=== PATIENT | female | born 1990 | race Caucasian/White ===

== ENCOUNTER 2020-12-30 09:30 | Inpatient (IN) | payer BC, SELFPAY ==
[2020-12-30] VITALS (54 sets, daily range): BP systolic 97–130; BP diastolic 54–82; PULSE 65–104; RESP 16; TEMP 36.1–37.3; O2SAT 68–100; BMI 28.1
[2020-12-30] MEDS: Lactated Ringers 1,000 ML 50 ML IV (10:00)
[2020-12-30] MEDS: Oxytocin 30 units/NS 500 ml 30 UNITS/500 ML IV.SOLN IV (10:20)
[2020-12-30 10:23] LABS: Absolute Lymphocyte Count 1.13 X10^3/uL (0.83-4.51); Absolute Neutrophil Count 6.1 X10^3/uL (2.0-7.7); Basophil# 0.03 X10^3/uL; Basophil% 0.4 % (0-1); Eosinophil# 0.07 X10^3/uL; Eosinophils% 0.9 % (0-5); Hematocrit 38.1 % (37-47); Hemoglobin 12.9 g/dL (12.0-15.0); Lymphocyte # 1.13 X10^3/ul (4.0); Lymphocyte % 14.3 % (19-41); Mean Corp Hgb Conc 33.9 g/dL (32-36); Mean Corpuscular Hgb 32.5 pg (27.0-32.0); Mean Platelet Vol. 11.7 fl (6.2-12.0); Monocyte# 0.49 X10^3/uL; Monocyte% 6.2 % (0-10); NRBC Flagged by Analyzer 0 % (0-5); Neutrophil # 6.14 X10^3/uL (2.7-7.7); Neutrophil % 77.4 % (47-70); Platelet Count 141 K/mm3 (150-450); RBC Distribution Width CV 13.2 % (11.6-14.6); RBC Distribution Width SD 45.7 fl (35.1-43.9); Red Blood Count 3.97 M/mm3 (4.2-5.4); White Blood Count 7.9 K/mm3 (4.4-11.0)
[2020-12-30] MEDS: Lactated Ringers 500 ML 999 ML IV (13:14)
[2020-12-30] MEDS: fentaNYL-bupivacaine (epidural) 100 ML BAG EPIDURAL (14:45)
[2020-12-30] MEDS: Ondansetron 4 MG/2 ML Vial IV (15:02)
[2020-12-30] MEDS: Oxytocin 30 units/NS 500 ml 30 UNITS/500 ML IV.SOLN 334 UNITS IV (15:43)
--- NOTE | 2020-12-30 16:10 | PCM.OPRPT ---
Vaginal Delivery Maternal Presentation: Medically Indicated Induction Method of Induction: Pitocin, Amniotomy Amniotic Membrane Rupture Type: Artificial Amniotic Fluid Description: Clear Final KYRIE: 01/04/21 Gestational age: 39 Weeks and 2 Days Date of Procedure: 12/30/20 Pre-Operative Diagnosis: History of shoulder dystocia Post-Operative Diagnosis: Same Surgery/ Procedure Performed: Spontaneous Vaginal Delivery Type of Anesthesia: Epidural Description of Procedure: Patient pushed when C/C/+1. She pushed well. Patient was then prepped & draped in stirrups. She pushed well to deliver the head. Shoulders & body spontaneously followed. Infant placed on maternal abdomen where 3VC clamped & cut in delayed fashion. Placenta delivered with gentle traction and good uterine tone obtained. Presentation: RADHA Placental Delivery Description: Expressed Placenta Disposition: [facility] Cord Vessel Description: 3 Vessels Cord Entanglement: None Drain: Posada to straight drain Estimated Blood Loss: 250ml A gender: Female - [place] (1 minute): 9 (5 minute): 9 Episiotomy Description: None Laceration: None Medications given after delivery: IV Pitocin Complications: None
--- NOTE | 2020-12-30 16:16 | HP.PCM_ITS ---
History Date of Admission: 12/30/20 Final KYRIE: 01/04/21 Gestational age: 39 Weeks and 2 Days History of this : This is a 30 year-old, G [], P [], at 39 weeks gestational age. Medical History: Medical History (Last Updated 12/30/20 @ 16:[address] David Broderick MD) delivery delivered O82 Depression F32.9 Allergies fluoxetine [From Prozac] Adverse Reaction (Verified 10/14/17 21:29) Upset Stomach paroxetine [From Paxil] Adverse Reaction (Verified 10/14/17 21:29) Upset Stomach Home Medications: Home Medications buPROPion tablets [Wellbutrin] 150 mg PO DAILY 10/14/17 Acyclovir 400 mg PO DAILY 12/30/20 Vits [Prenatabs FA] 1 tab PO DAILY 12/30/20 Smoking Status: Light Smoker (<10/day) Substance Use Type: Anxiety Medications History Past Pregnancies: Past Pregnancies Delivery Date Name GA/ Weeks Outcome Route Wt Sex Labor Length Anesthesia Delivery Location Provider FOB Physical Exam Vitals: Vital Signs Temp Pulse BP Pulse Ox 97.5 F L 85 119/69 68 12/30/20 15:55 12/30/20 16:13 12/30/20 16:11 12/30/20 16:13 General: Alert, Oriented x3 Abdomen: Bowel Sounds Present, Soft, Non Tender, Gravid Neurological: Cranial nerves II-XII grossly intact FIELD SERVICE SUPERVISOR: Normal external genitalia Estimated gestational size: Appropriate for gestational size Presentation: Cephalic Cervix Dilation (cm): 3.5 - AROM clear fluid Station: -2 Effacement (%): 60 Assessment/Plan This is a 30 year-old, at 39&2 weeks gestational age. Admit to L&D Induction - patient counseling extensively on R/B/A of repeat vs induction with TOLAC. Patient with h/o shoulder dystocia and thus those risks reviewed as well. Patient wishes to proceed with induction. S/p AROM & on pitocin. Pain - plans for epidural GBS negative COVID negative ([facility] lab) Routine care
[2020-12-30] MEDS: Ibuprofen 600 MG Tablet PO (17:02)
[2020-12-30] MEDS: Sertraline 100 MG Tablet PO (23:28)
[2020-12-31 03:27] VITALS: BP 106/69; PULSE 78; RESP 16; TEMP 36.7
--- NOTE | 2020-12-31 07:25 | PN.OBGYN_ITS ---
Subjective: She is doing well. Pain well controlled. Lochia normal. She is breast-feeding without complaints. No chest pain, shortness of breath, lightheadedness, dizziness, leg pain. She feels well and has no complaints. She desires to go home today. Voiding and ambulating without difficulty. Eating a diet without difficulty. - Physical Exam Vitals/I&O's: Vital Signs Temp Pulse Resp BP Pulse Ox 98.1 F 78 16 106/69 100 12/31/20 03:27 12/31/20 03:27 12/31/20 03:27 12/31/20 03:27 12/30/20 17:33 Oxygen Delivery Method Room Air Weight: 164 lb Body Mass Index (BMI) 28.1 Intake and Output for Last 24 Hours 12/29/20 12/30/20 12/31/20 23:59 23:59 23:59 Intake Total 1462.83 / 1462.83 Output Total 50 / 50 Balance 1412.83 / 1412.83 General: Alert, No apparent distress HEENT: Atraumatic Abdomen: Soft, Non Tender, - - FF Extremities: No edema, No Calf Tenderness Skin: No rashes Neurological: Neuro grossly intact Psych/Mental Status: Normal Affect, Appropriate Laboratory Results 12/30/20 10:00: WBC 7.9, RBC 3.97 L, Hgb 12.9, Hct 38.1, MCV 96.0, MCH 32.5 H, MCHC 33.9, RDW Std Deviation 45.7 H, RDW Coeff of Kenneth 13.2, Plt Count 141 L, MPV 11.7, Immature Gran % (Auto) 0.800, Neut % (Auto) 77.4 H, Lymph % (Auto) 14.3 L, [place] % (Auto) 6.2, Eos % (Auto) 0.9, Baso % (Auto) 0.4, Absolute Neuts (auto) 6.1, Absolute Lymphs (auto) 1.13, Nucleated RBC % 0 12/30/20 10:00: Blood Type A POSITIVE, Antibody Screen NEGATIVE Current Medications Acetaminophen (Acetaminophen 500 Mg Tablet) 1,000 mg PO Q8H PRN PRN PRN Reason: Pain Score 1-3 Bisacodyl (Bisacodyl 10 Mg Suppository) 10 mg RC UD PRN PRN Reason: If no BM Dibucaine (Dibucaine 30 Gm Tube) 1 applic TOPICAL TID PRN PRN; Protocol PRN Reason: Discomfort Hydrocortisone (Hydrocortisone 2.5% Crm) 1 applic TOPICAL TID PRN PRN; Protocol PRN Reason: Discomfort Ibuprofen (Ibuprofen 600 Mg Tablet) 600 mg PO Q6H PRN PRN PRN Reason: Pain Score 1-3 Last Admin: 12/30/20 17:02 Dose: 600 mg Documented by: Methylergonovine Maleate (Methylergonovine 0.2 Mg/Ml Ampul) 0.2 mg IM X1 PRN PRN Reason: Excess bleeding/uterine atony Ondansetron HCl (Ondansetron 4 Mg/2 Ml Vial) 4 mg IV Q4H PRN PRN PRN Reason: Nausea Oxycodone HCl (Oxycodone 5 Mg Tablet) 5 - 10 mg PO Q4H PRN PRN PRN Reason: Pain Score 4-10 Multivit/Folic Acid/Iron ( Vits Tablet) 1 tablet PO DAILY@1200 ROS Senna/Docusate Sodium (Senna/Docusate Sodium 1 Tablet) 1 - 2 tablet PO DAILY PRN PRN PRN Reason: Constipation Sertraline HCl (Sertraline 100 Mg Tablet) 100 mg PO DAILY@2200 ROS Last Admin: 12/30/20 23:28 Dose: 100 mg Documented by: Simethicone (Simethicone 80 Mg Tablet) 80 mg PO PCHS PRN PRN Reason: Indigestion/Stomach pain Sodium Chloride (0.9% Saline Lock 10 Ml Syringe) 5 - 15 ml IV UD PRN PRN Reason: SALINE FLUSH Medical Necessity - Tobacco Use Smoking Status: Light Smoker (<10/day) Assessment/Plan Patient is day 1 from a vaginal after section. She is doing well. She desires discharge today. Discharge instructions reviewed.
--- NOTE | 2020-12-31 07:26 | DCINST_ITS ---
Discharge Diet: No Restrictions Discharge Activity: May Shower May resume sexual activity in: 6 weeks Ice area for (Minutes): 15 Weight Bearing Status: Weight bearing as tolerated Lifting Restrictions: Nothing heavier than baby Call your doctor if you observe: Fever of 101 or Higher, Change in Color, Inability to urinate, Inability to have a bowel movement, Using more than one pad per hour, Shortness of breath, Dizziness, Fainting spells, Swelling in the ankles, Chest pain, Calf discomfort, Uncontrolled pain Additional Instructions: If you experience any of the following, contact your healthcare provider. * Bleeding that soaks a pad every hour for 2 hours * Fever 100.4 or higher * Unrelieved incision or abdominal pain * Swelling, redness, discharge or bleeding from your incision or episiotomy site * Your incision begins to separate * Problems urinating (including inability to urinate or burning while urinating). * Visual changes * Severe headache * Flu-like symptoms * Pain or redness in one of both of your breasts * Pain, warmth, tenderness or swelling in your legs, especially the calf area * Frequent nausea and vomiting * Symptoms of depression or anxiety If you experience any of the following, call 911 or go to the nearest Emergency Room. * Chest pain * Problems breathing * Seizure activity * Partial or complete paralysis of a body part, slurred speech, weakness or drooping of the face, or a sudden inability to walk or hold your balance Allergies/Adverse Reactions: Allergies fluoxetine [From Prozac] Adverse Reaction (Verified 10/14/17 21:29) Upset Stomach paroxetine [From Paxil] Adverse Reaction (Verified 10/14/17 21:29) Upset Stomach Medications to take at Discharge Acyclovir 400 mg PO DAILY 12/30/20 Vits [Prenatabs FA] 1 tab PO DAILY 12/30/20 Sertraline HCl [Zoloft] 100 mg PO DAILY 12/30/20 When: 1-2 weeks for virtual if you desires. 6 weeks for Primary Care Physician: Care Physician,No Primary [Primary Care Provider] - Test Results: Test results from this visit will be discussed in further detail at your follow- up appointment, if applicable.
[2020-12-31 08:04] VITALS: O2SAT 96
[2020-12-31 08:49] VITALS: BP 111/70; PULSE 78; RESP 16; TEMP 36.1
--- NOTE | 2020-12-31 11:10 | CASEMGMT ---
Social Work Brief Assessment completed. Refer documentation below for further details. Date of Referral/Notification: 12/30/2020 Time of Referral: 1857 Referred By: Dr. David Broderick Reason for Referral: maternal history of PPD, depression, and anxiety Date of Intervention: 12/31/2020 Time of Intervention: 1110 Informant: Medical record, care record, and mother of baby (MOB) Brynn History: MOB is 30 year old female, to 3 after delivery of this admission. to be named Rolanda, weighed 7 pounds 4 ounces, Apgars of 9 and 9. MOB is to father of baby (FOB), Stewart, and have two other children at home named Mariah (born April 2014) and Supriya (born September 2017). No issues with transportation or housing reported. MOB reports just built a new home on [address], moving in last month. 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 There is family support on both sides, from MOB?s parents and from FOB?s mother. MOB with history of depression and anxiety, treatment at [facility] with Basil De Los Santos. MOB has been on Zoloft and Wellbutrin in the past, currently treated with Zoloft during this . Prior history reports Wellbutrin works the best for MOB. No reports of any current or recent drug usage, MOB with history of some illicit drug use as a teen and then as an adult history of marijuana. Assessment: MOB holding baby during social work visit, appropriate and gentle. MOB with appropriate affect, good eye contact. MOB reports plan to stay on antidepressant medications. Reports to have adequate support at home from family, and to have needed baby supplies. Reports to have a connectin to this baby as well. Denies any concerns for home going. No safety concerns in household, or with the FOB. Per nursing, no concerns with mother/ bonding or MOB actions/behaviors. Provided MOB with resource for mood and anxiety disorders. MOB accepting of information provided, which includes signs and symptoms, how to care for self, parenting with depression, local counseling resources, as well as online resources. Plan: MOB and to home. MOB plans to stay on prescribed antidepressant and to call doctor if symptoms of arise post discharge. No further needs requested or indicated. -KATHRINE Richardson, ALTERATION TAILOR
[2020-12-31 12:31] VITALS: BP 93/58; PULSE 71; RESP 16; TEMP 36.1
[2020-12-31 16:17] VITALS: BP 112/73; PULSE 83; RESP 16; TEMP 36.2
== END 2020-12-31 18:10 | disposition home or self-care (01) | DRG 807 ==
PROVIDERS: Admitting Provider Obstetrics & Gynecology; Visit Provider Obstetrics & Gynecology
DX: O34.219 Maternal care for unspecified type scar from previous cesarean delivery (principal); Z37.0 Single live birth; O99.344 Other mental disorders complicating childbirth; O99.334 Smoking (tobacco) complicating childbirth; F17.200 Nicotine dependence, unspecified, uncomplicated; Z3A.39 39 weeks gestation of pregnancy; F32.9 Major depressive disorder, single episode, unspecified
CPT/HCPCS: 59025; 59050; 85025; 86850; 86900; 86901; 99218; J7120; G0378; J2405

== ENCOUNTER 2022-07-28 04:28 | Emergency (ER) | payer BC, SELFPAY ==
[2022-07-28 04:29] VITALS: PULSE 77; RESP 18; TEMP 35.9; O2SAT 100; BMI 20.7
[2022-07-28 04:34] VITALS: BP 128/83
--- NOTE | 2022-07-28 04:48 | RAD_ITS ---
STUDY: X-RAY CHEST REASON FOR EXAM: Female, 32 years old. chest pain TECHNIQUE: AP portable. 4:51 AM. COMPARISON: None. FINDINGS: LUNGS: No consolidation. No pneumothorax. MEDIASTINUM: Unremarkable. CARDIAC SILHOUETTE: Not enlarged. BONES AND SOFT TISSUES: No acute abnormalities. RAD/Chest 1 View (Portable) IMPRESSION: No evidence of active intrathoracic disease. Electronically Signed: Rosa Maria Crenshaw MD at 5:05 EDT ,
[2022-07-28 05:00] LABS: Absolute Lymphocyte Count 2.73 X10^3/uL (0.83-4.51); Absolute Neutrophil Count 4.8 X10^3/uL (2.0-7.7); Basophil# 0.07 X10^3/uL; Basophil% 0.8 % (0-1); Eosinophil# 0.36 X10^3/uL; Eosinophils% 4.2 % (0-5); Hemoglobin 13.5 g/dL (12.0-15.0); Lymphocyte # 2.73 X10^3/ul (0.83-4.51); Lymphocyte % 31.6 % (19-41); Mean Corp Hgb Conc 33.8 g/dL (32-36); Mean Corpuscular Hgb 30.8 pg (27.0-32.0); Mean Corpuscular Volume 91.3 fL (81-99); Mean Platelet Vol. 11.3 fl (6.2-12.0); Monocyte# 0.68 X10^3/uL; Monocyte% 7.9 % (0-10); NRBC Flagged by Analyzer 0 % (0-5); Neutrophil # 4.79 X10^3/uL (2.7-7.7); Neutrophil % 55.3 % (47-70); Platelet Count 236 K/mm3 (150-450); RBC Distribution Width CV 12.3 % (11.6-14.6); RBC Distribution Width SD 41.1 fl (35.1-43.9); Red Blood Count 4.38 M/mm3 (4.2-5.4); White Blood Count 8.7 K/mm3 (4.4-11.0)
--- NOTE | 2022-07-28 05:08 | EX.ED.DYSGE1 ---
HPI History of Present Illness Chief Complaint: Chest Pain Informant: patient Narrative Narrative: Patient states she has been having episodes for the last 1 and half to 2 weeks. Most of these occur about 1 or 2 in the morning. She will wake up panicking. She has trouble catching her breath. Her chest feels tight and her heart is racing. She states she knows her blood pressure is up. She has not checked her blood pressure but she states that she can feel when her blood pressure is up. She has had these episodes occur during the day but they are not as common. In between the episodes she feels fine and is not having any symptomatology. She does have a history of anxiety and panic attacks but states they usually feel little different than this. She is not on medications for anxiety at this time. She is overall quite healthy Patient has no history of medical problems. She is on no medications including no control or hormonal therapy. She vapes but does not smoke cigarettes. She only vapes occasionally. She has no blood pressure diabetes cholesterol or family history of heart disease. She has no recent travel surgery immobilization personal or family history of DVT or PE. She has no leg swelling or pain. [facility] Medical History delivery delivered Depression Allergy/AdvReac Type Severity Reaction Status Date / Time fluoxetine [From Prozac] AdvReac Upset Verified 10/14/17 21:29 Stomach paroxetine [From Paxil] AdvReac Upset Verified 10/14/17 21:29 Stomach Social History Smoking Status: Current every day smoker tobacco type: e-cigarettes ROS ROS ED Constitutional Constitutional ED: Denies chills or fever(s) Eyes Eyes: Denies change in vision ENT ENT ED: Denies ear pain or rhinorrhea Cardiovascular Cardiovascular: Reports chest pain, palpitations and racing heartbeat; Denies orthopnea or paroxysmal nocturnal dyspnea Respiratory/Chest Respiratory/Chest: Reports dyspnea; Denies cough, dyspnea on exertion, orthopnea, paroxysmal nocturnal dyspnea or sputum Gastrointestinal Gastrointestinal: Denies abdominal pain, nausea or vomiting Musculoskeletal Musculoskeletal: Denies arthralgias or myalgias Integumentary Denies rash Neurologic Neurologic: Denies headache(s), paresthesias or weakness Psychiatric Psychiatric: Reports anxiety Endocrine Endocrinology: Denies polydipsia or polyuria Hematologic/Lymphatic Hematologic/Lymphatic: Denies anemia Allergic/Immunologic Allergic/Immunologic ED: Denies urticaria EXAM Physical Exam Const Vital Signs: 07/28/22 04:29 07/28/22 04:33 07/28/22 04:34 Temperature 96.7 F L Temperature Source Temporal Pulse Rate 77 Respiratory Rate 18 Respiratory Effort Normal Non-Labored Blood Pressure 128/83 H Blood Pressure Mean 98 Pulse Ox 100 Oxygen Delivery Method Room Air 07/28/22 04:49 Temperature Temperature Source Pulse Rate Respiratory Rate Respiratory Effort Blood Pressure Blood Pressure Mean Pulse Ox Oxygen Delivery Method Room Air Positive well nourished and well developed General Appearance ED: well developed and NAD; Negative for cyanotic, diaphoretic or pallor HEENT Reports moist mucous membranes Eyes General Eye ED: Negative for pale conjunctiva or scleral icterus Neck supple and no JVD Chest Wall inspection of chest normal Resp normal respiratory effort and clear to auscultation bilaterally Resp Narrative: No pain with a deep breath Auscultation: Negative for rales, rhonchi or diminished lung sounds Cardio regular rate, regular rhythm and no murmurs Rate: other Other Details: Heart rate is about 80 on the monitor. No ectopy noted. GI normal to inspection, nondistended, normoactive bowel sounds, non-tender and non-distended Palpation: soft Back/Spine no CVA tenderness Extremity normal to inspection Extremity Narrative: No edema, cords, tenderness, distended veins or asymmetry. General Extremety ED: Negative for edema or tenderness General Extremity: Negative for edema Psych Mood & Affect: anxious Skin no rashes or lesions noted General Skin Exam: elasticity normal; Negative for jaundice or pallor MDM MDM MDM Narrative Medical decision making narrative: I reviewed chest x-ray. Blood work reviewed. CBC including hemoglobin white count platelets are normal. Electrolytes are normal. Creatinine is normal. Troponin is negative at 3. TSH is within normal. Since the patient's been having symptoms for a week and a half or more I do not think that we need to do a delta troponin. She is very low risk patient. She is PERC negative. She is having intermittent symptoms that occur consistently at night and occasionally during the day. This might be reflux. We talked about that. She states she did feel as though she had some acid taste a couple times but not consistently. We will have her start Prilosec or Nexium [id number]. She has an appointment with her physician already on Sunday and she should keep this. We discussed that this could be anxiety or panic attacks that she has had those before. If she is not improving with the proton pump inhibitor they may look into further treatment with anxiety meds. She may need further work-up. We discussed reasons to return. Lab Data Attestation: I reviewed the patient's lab results. Labs: Laboratory Results - last 24 hr 07/28/22 07/28/22 04:31 04:31 WBC 8.7 RBC 4.38 Hgb 13.5 Hct 40.0 MCV 91.3 MCH 30.8 MCHC 33.8 RDW Std Deviation 41.1 RDW Coeff of Kenneth 12.3 Plt Count 236 MPV 11.3 Immature Gran % (Auto) 0.200 Neut % (Auto) 55.3 Lymph % (Auto) 31.6 [place] % (Auto) 7.9 Eos % (Auto) 4.2 Baso % (Auto) 0.8 Absolute Neuts (auto) 4.8 Absolute Lymphs (auto) 2.73 Nucleated RBC % 0 Sodium 140 Potassium 3.5 Chloride 105 Carbon Dioxide 29.0 Anion Gap 6 BUN 12 Creatinine 0.73 Estim Creat Clear Calc 93.77 Est GFR (MDRD) Af Amer 117 Est GFR (MDRD) Non-Af 97 BUN/Creatinine Ratio 16.4 Glucose 104 Calcium 9.3 Troponin I High Sens 3 TSH 3.74 Radiography Diagnostic Testing: Clinical Impression(s) from Imaging Studies Chest X-Ray 07/28/22 04:48 IMPRESSION: No evidence of active intrathoracic disease. Electronically Signed: Rosa Maria Crenshaw MD at 5:05 EDT , Single view chest x-ray AP looked at by me and read by radiology shows no acute process. EKG Initial EKG: Comments: EKG done for palpitations and chest tightness read by me shows a normal sinus rhythm with overall rate of 85. No ventricular ectopy. Slight sinus arrhythmia. No acute ST elevation or depression. PA interval, QRS duration and QTc are normal. Discharge Plan Triage Chief Complaint: Chest Pain ED Provider: Tomy Chisholm Dx/Rx/DC Orders Clinical Impression: Heart palpitations, Chest tightness Instructions: ED Chest Pain, Uncertain Cause Primary Care Provider: Jacki Hillman NP Referrals: Care Physician,No Primary [Non-Staff] - Jacki Hillman CERTIFIED MEDICAL AIDE, CERTIFIED MEDICAL AIDE-C [Primary Care Provider] - Keep Arpita appointment Activity Restrictions/Additional Instructions: Take 1 [id number] Nexium or Prilosec daily until your follow-up appointment on Sunday. Disposition Disposition: Home, Self Care
[2022-07-28 05:24] LABS: Anion Gap 6 (5-15); BUN 12 mg/dL (7-18); BUN/Creat Ratio 16.4 RATIO (10-20); Calcium,Total 9.3 mg/dL (8.5-10.1); Chloride 105 mmol/L (98-107); Creatinine, Serum 0.73 mg/dL (0.55-1.02); EST Glomerular Filtration Rate 97 mL/min (>60); Est Glom Filt Rate - Afr Amer 117 mL/min (>60); Estimated Creatinine Clearance 93.77 ml/min; Glucose 104 mg/dL (74-106); Potassium 3.5 mmol/L (3.5-5.1); Sodium Level 140 mmol/L (136-145); Thyroid Stim Hormone (TSH) 3.74 uIU/mL (0.358-3.74); Troponin-I HS 3 pg/mL (3.0-54.0)
[2022-07-28 05:56] VITALS: BP 107/83; PULSE 68; RESP 16; O2SAT 100
== END 2022-07-28 06:05 | disposition home or self-care (01) ==
PROVIDERS: Emergency Provider Emergency Medicine; PCP Nurse Practitioner; Visit Provider Emergency Medicine
DX: R00.2 Palpitations (principal); R07.89 Other chest pain; F17.290 Nicotine dependence, other tobacco product, uncomplicated
CPT/HCPCS: 71045; 80048; 84443; 84484; 85025; 93005; 99284; A4216